=== PATIENT | female | born 1955 | race Caucasian/White ===

== ENCOUNTER 2020-03-10 08:21 | Outpatient (CLI) | payer BC, SELFPAY ==
--- NOTE | 2020-03-10 08:00 | USCV_ITS ---
Vanesa Paez Age: 64 Gender: F : 1955 Exam Date: 03/10/2020 08:27 Ordering Phys: Lokesh Montanez MD ([email or web address]) Technologist: Jaspal Dickinson Exam Location: [facility] [place] Indication: AI BP: 125 / 72 HR: 82 Rhythm: Sinus Technical Quality: Fair MEASUREMENTS (Male / Female) Normal Values 2D ECHO LV Diastolic Diameter PLAX 3.0 cm 4.2 - 5.9 / 3.9 - 5.3 cm LV Systolic Diameter PLAX 2.3 cm IVS Diastolic Thickness 1.0 cm 0.6 - 1.0 / 0.6 - 0.9 cm IVS Systolic Thickness 1.5 cm LVPW Diastolic Thickness 0.8 cm 0.6 - 1.0 / 0.6 - 0.9 cm LVPW Systolic Thickness 1.1 cm LVOT Diameter 2.0 cm LV Ejection Fraction 2D Teich 50.3 % LV Ejection Fraction MOD 2C 71.9 % LV Ejection Fraction 2C AL 71.5 % LA Diameter 3.8 cm LA Width 3.9 cm LA Height 5.0 cm RA Width 3.4 cm RA Height 4.4 cm Aorta at Sinotubular Diameter 3.0 cm M-MODE LV Diastolic Diameter MM 4.8 cm 4.2 - 5.9 / 3.9 - 5.3 cm LV Systolic Diameter MM 3.3 cm LV Ejection Fraction MM Teich 57.4 % IVS Diastolic Thickness MM 0.8 cm 0.6 - 1.0 / 0.6 - 0.9 cm IVS Systolic Thickness MM 1.1 cm LVPW Diastolic Thickness MM 1.0 cm 0.6 - 1.0 / 0.6 - 0.9 cm LVPW Systolic Thickness MM 1.4 cm RV Diastolic Diameter MM 1.2 cm Aortic Annulus Diameter 3.8 cm LA Ao Ratio MM 1.0 MV E Point Septal Separation 1.8 cm DOPPLER AV Peak Velocity 144.0 cm/s LVOT Peak Velocity 101.0 cm/s AV Area Cont Eq vti 2.6 cm squared AV Area Cont Eq pk 2.3 cm squared MV Area PHT 5.0 cm squared Mitral E to A Ratio 0.7 MV E' Velocity 8.0 cm/s Mitral E to MV E' Ratio 7.6 Mitral E to LV E' Lateral Ratio 7.4 Mitral E to LV E' Septal Ratio 7.9 TR Peak Velocity 276.0 cm/s TR Peak Gradient 30.5 mmHg TV Peak E Velocity 92.0 cm/s Right Atrial Pressure 3.0 mmHg Pulmonary Artery Systolic Pressu 33.5 mmHg FINDINGS Left Ventricle Normal left ventricular size and systolic function, EF 70 %. No regional wall motion abnormalities. Grade I/IV diastolic dysfunction (abnormal relaxation filling pattern), normal to mildly elevated filling pressures. Right Ventricle The right ventricle is normal in size and function. Right Atrium The right atrium is normal in size. Left Atrium Mildly increased left atrial size. Mitral Valve Thickened mitral valve. Moderate mitral annular calcification. Mild mitral valve regurgitation. Aortic Valve Thickened aortic valve. [id number] aortic valve regurgitation. Tricuspid Valve Trace tricuspid valve regurgitation. Pulmonic Valve Structurally normal pulmonic valve without significant stenosis. There is no pulmonic regurgitation. Pericardium Normal pericardium without effusion. Aorta Plaque seen in the ascending aorta. CONCLUSIONS Normal left ventricular size and systolic function, EF 70 %. No regional wall motion abnormalities. Grade I/IV diastolic dysfunction (abnormal relaxation filling pattern), normal to mildly elevated filling pressures. Mildly increased left atrial size. Thickened mitral valve. Moderate mitral annular calcification. Mild mitral valve regurgitation. Thickened aortic valve. [id number] aortic valve regurgitation. Trace tricuspid valve regurgitation. There is no pericardial effusion. There are no intracardiac masses. Plaque seen in the ascending aorta. Compared to study from 06/19/2018, there may not be a significant change Dr Maged Jones MD FACC (Electronically Signed) Final Date: 10 March 2020 18:24 S
== END 2020-03-10 08:22 | disposition home or self-care (01) ==
LOC: RAD 08:25
PROVIDERS: PCP Internal Medicine; Visit Provider Internal Medicine Cardiovascular Disease
DX: R06.02 Shortness of breath (principal); I08.3 Combined rheumatic disorders of mitral, aortic and tricuspid valves
CPT/HCPCS: 93306

== ENCOUNTER 2022-04-10 16:27 | Emergency (ER) | payer BC, SELFPAY ==
--- NOTE | 2022-04-10 16:34 | ED_ITS ---
Documented by User: Catarinonate Molina DO 04/10/22 18:03 HPI - Chest Pain General: Chief Complaint: Chest Pain Stated Complaint: CHEST PAIN Time Seen by Provider: 04/10/22 16:28 History of Present Illness: 66-year-old female presents with chest pain. Patient was brought in by EMS. She reports that she had gone out to hang up a couple she is in some close and she developed chest pain in the epigastric mid chest that radiated to her back. She took 3 baby aspirin's at home. She called ambulance who in route put an IV and gave her nitro. She reports the nitro gave her some minimal relief. She now complains mainly of pain in the epigastric region. She reports that may be because she had a big lunch she does report she got a little diaphoretic when she came in. She denies any shortness of breath, nausea, vomiting. Associated symptoms: Reports abdominal pain (Epigastric) and diaphoresis; Deny dyspnea, fever(s), nausea, palpitations or vomiting Review of Systems Const: Reports: diaphoresis; Denies: fever(s) or chills Eyes: Denies: change in vision or blurry vision ENMT: Denies: throat pain or ear or mastoid pain Card: Reports: chest pain; Denies: palpitations, irregular heart rhythm or edema Resp: Denies: dyspnea or productive cough GI: Reports: abdominal pain (Epigastric); Denies: nausea or vomiting Musc: Reports: back pain; Denies: neck pain or extremity pain Skin/Breast: Denies: rash Neuro: Denies: headache(s) or numbness in extremities PFS ED PFSH: Medical History History of aortic regurgitation History of hypertension History of tachycardia Social History Smoking and tobacco status: never smoked Physical Exam Const: COMMON NORMALS: no acute distress, patient oriented x3, no limitations and alert HENMT: COMMON NORMALS: normocephalic HEAD & SCALP: normal to inspection and normocephalic Eye: COMMON NORMALS: Equal, round and reactive pupils present and conjunctivae normal CONJUNCTIVA: Yes conjunctivae normal PUPIL: Yes Equal, round and reactive pupils present Chest: CHEST: Yes Symmetrical chest wall rise and No tenderness Resp: COMMON NORMALS: normal respiratory effort, No retractions, No use of accessory muscles and clear to auscultation bilaterally AUSCULTATION: clear to auscultation bilaterally Cardio: COMMON NORMALS: regular rate and regular rhythm RATE: regular rate RHYTHM: regular rhythm GI: COMMON NORMALS: Soft to palpation INSPECTION: Yes normal to inspection PALPATION: Yes Soft to palpation and Yes Tenderness to palpation present (GI) Details: other (Mild epigastric) : COMMON NORMALS: Yes no CVA tenderness BLADDER/KIDNEY EXAM: Yes no CVA tenderness Back/Pelvis: COMMON NORMALS: no CVA tenderness Extremity: COMMON NORMALS: normal to inspection and full ROM Neuro: COMMON NORMALS: patient oriented x3, CN's II-XII intact bilaterally, moves all extremities, no focal motor deficits and no sensory deficits noted SENSORIUM/ORIENTATION: Yes alert Psych: COMMON NORMALS: mental status grossly normal, Normal thought process present and cooperative THOUGHT PROCESS: Normal thought process present Course Vital Signs: Vital signs: Vital Signs Temperature 97.6 F 04/10/22 16:35 Pulse Rate 88 04/10/22 16:47 Respiratory Rate 15 04/10/22 16:47 Blood Pressure 171/82 04/10/22 16:47 Pulse Oximetry 96 04/10/22 16:47 MDM - Chest Pain Medical Decision Making pt signed out to Dr Montez Lab Data : 04/10/22 16:44 04/10/22 17:17 Radiology Impressions Chest X-Ray 04/10/22 16:38 IMPRESSION: No acute findings. Laboratory Results WBC 8.2 10^3/uL (4.0-10.0) 04/10/22 16:44 RBC 4.30 10^6/uL (4.1-5.3) 04/10/22 16:44 Hgb 12.8 g/dL (11.5-15.3) 04/10/22 16:44 Hct 37.8 % (37.0-47.0) 04/10/22 16:44 MCV 87.9 fl (81-99) 04/10/22 16:44 MCH 29.8 pg (28.0-34.0) 04/10/22 16:44 MCHC 33.9 g/dL (30.0-36.0) 04/10/22 16:44 RDW 14.2 % (12.1-15.1) 04/10/22 16:44 Plt Count 296 10^3/cmm (130-400) 04/10/22 16:44 MPV 11.4 fL (7.4-10.4) H 04/10/22 16:44 Neut % (Auto) 50.4 % 04/10/22 16:44 Lymph % (Auto) 35.5 % 04/10/22 16:44 Stevens % (Auto) 8.5 % 04/10/22 16:44 Eos % (Auto) 4.8 % 04/10/22 16:44 Baso % (Auto) 0.7 % 04/10/22 16:44 Neut # (Auto) 4.12 10^3/uL (1.8-7.7) 04/10/22 16:44 Lymph # (Auto) 2.9 10^3/uL (0.8-4.8) 04/10/22 16:44 Stevens # (Auto) 0.7 10^3/uL (0.2-0.9) 04/10/22 16:44 Eos # (Auto) 0.4 10^3/uL (0.0-0.8) 04/10/22 16:44 Baso # (Auto) 0.1 10^3/uL (0.0-0.1) 04/10/22 16:44 Nucleated RBC % (auto) 0 % 04/10/22 16:44 Nucleated RBCs # 0.0 /100WBC 04/10/22 16:44 Sodium 133 mmol/L (136-145) L 04/10/22 17:17 Potassium 3.6 mmol/L (3.5-5.1) 04/10/22 17:17 Chloride 100 mmol/L (98-107) 04/10/22 17:17 Carbon Dioxide 21 mmol/L (22-29) L 04/10/22 17:17 Anion Gap 15.6 (5-19) 04/10/22 17:17 BUN 14 mg/dL (8-23) 04/10/22 17:17 Creatinine 1.1 mg/dL (0.5-0.9) H 04/10/22 17:17 GFR Calculation 50.0 mL/min (90-130) L 04/10/22 17:17 Glucose 120 mg/dL (65-115) H 04/10/22 17:17 Calculated Osmolality 278 mOsm/kg (285-295) L 04/10/22 17:17 Calcium 9.6 mg/dL (8.5-10.5) 04/10/22 17:17 Total Bilirubin 0.3 mg/dL (0.15-1.2) 04/10/22 17:17 AST 105 U/L (0-32) H 04/10/22 17:17 ALT 44 U/L (0-33) H 04/10/22 17:17 Alkaline Phosphatase 150 IU/L (35-105) H 04/10/22 17:17 Troponin T Baseline 11 ng/L (0-10) H 04/10/22 17:17 Troponin T 120 Minute 10.04 ng/L (0-10) H 04/10/22 18:52 Delta Troponin T -0.96 ABS# (0-10) L 04/10/22 18:52 NT-Pro-B Natriuret Pep 134 pg/mL (0-125) H 04/10/22 17:17 Total Protein 6.2 g/dL (6.6-8.7) L 04/10/22 17:17 Albumin 3.7 g/dL (3.5-5.2) 04/10/22 17:17 Globulin 2.5 g/dL (1.3-4.6) 04/10/22 17:17 Lipase 29 U/L (13-60) 04/10/22 17:17 EKG Data EKG 1: I personally reviewed and interpreted this EKG as follows: EKG interpretation date: 04/10/22 EKG interpretation time: 16:57 Interpretation: Heart rate 85, normal sinus rhythm, NH 202, QTc 428, no acute ST changes Discharge Plan Discharge Patient Disposition: Home Clinical Impression: Chest pain Condition: Stable Prescriptions: No Action levothyroxine 88 mcg tablet 88 mcg PO DAILY 0RF bupropion HCl 300 mg tablet extended release 24 hr 300 mg PO DAILY 0RF Zyrtec 10 mg capsule 10 mg PO DAILY PRN0RF levocetirizine [Xyzal] 5 mg tablet 5 mg PO DAILY PRN0RF fluoxetine [Prozac] 20 mg capsule 20 mg PO DAILY 0RF cholecalciferol (vitamin D3) 50 mcg (2,000 unit) capsule 50 mcg PO DAILY 0RF zinc 50 mg tablet 50 mg PO DAILY 0RF amlodipine 5 mg tablet 5 mg PO DAILY Qty: 90 3RF losartan 25 mg tablet 75 mg PO DIRECTED Qty: 90 0RF Rx Instructions: 50mg (2 tabs) in AM and 25mg (1 tab) in PM; Must have appt for further refills Discharge Orders: Discharge ED (Routine); Ordered 04/10/22 Ordered By: Simón Montez Referrals: Jareth Foster DO [Primary Care Provider] - 1-3 days Discharge Diet: Advance as tolerated Discharge Activity: Resume usual activity Patient Instructions: Chest Pain (ED) Coding Level of Care Code ED Cardiology Clinical Nurse Specialist for Chg Fwd Exam Comprehensive Documented by User: Simón Montez MD 04/10/22 19:41 HPI - Chest Pain General: Chief Complaint: Chest Pain Stated Complaint: CHEST PAIN Time Seen by Provider: 04/10/22 16:28 [facility] PFSH: Medical History History of aortic regurgitation History of hypertension History of tachycardia Social History Smoking and tobacco status: never smoked Course Vital Signs: Vital signs: Vital Signs Temperature 97.6 F 04/10/22 16:35 Pulse Rate 88 04/10/22 16:47 Respiratory Rate 15 04/10/22 16:47 Blood Pressure 171/82 04/10/22 16:47 Pulse Oximetry 96 04/10/22 16:47 MDM - Chest Pain Medical Decision Making pt signed out to Dr Montez Patient presents here with chest pain atypical in nature after eating likely gastritis she is pain-free here her troponins here are negative abdominal exam is benign she is stable for discharge she is to follow-up with PCP and return if worsening. Lab Data : 04/10/22 16:44 04/10/22 17:17 Radiology Impressions Chest X-Ray 04/10/22 16:38 IMPRESSION: No acute findings. Laboratory Results WBC 8.2 10^3/uL (4.0-10.0) 04/10/22 16:44 RBC 4.30 10^6/uL (4.1-5.3) 04/10/22 16:44 Hgb 12.8 g/dL (11.5-15.3) 04/10/22 16:44 Hct 37.8 % (37.0-47.0) 04/10/22 16:44 MCV 87.9 fl (81-99) 04/10/22 16:44 MCH 29.8 pg (28.0-34.0) 04/10/22 16:44 MCHC 33.9 g/dL (30.0-36.0) 04/10/22 16:44 RDW 14.2 % (12.1-15.1) 04/10/22 16:44 Plt Count 296 10^3/cmm (130-400) 04/10/22 16:44 MPV 11.4 fL (7.4-10.4) H 04/10/22 16:44 Neut % (Auto) 50.4 % 04/10/22 16:44 Lymph % (Auto) 35.5 % 04/10/22 16:44 Stevens % (Auto) 8.5 % 04/10/22 16:44 Eos % (Auto) 4.8 % 04/10/22 16:44 Baso % (Auto) 0.7 % 04/10/22 16:44 Neut # (Auto) 4.12 10^3/uL (1.8-7.7) 04/10/22 16:44 Lymph # (Auto) 2.9 10^3/uL (0.8-4.8) 04/10/22 16:44 Stevens # (Auto) 0.7 10^3/uL (0.2-0.9) 04/10/22 16:44 Eos # (Auto) 0.4 10^3/uL (0.0-0.8) 04/10/22 16:44 Baso # (Auto) 0.1 10^3/uL (0.0-0.1) 04/10/22 16:44 Nucleated RBC % (auto) 0 % 04/10/22 16:44 Nucleated RBCs # 0.0 /100WBC 04/10/22 16:44 Sodium 133 mmol/L (136-145) L 04/10/22 17:17 Potassium 3.6 mmol/L (3.5-5.1) 04/10/22 17:17 Chloride 100 mmol/L (98-107) 04/10/22 17:17 Carbon Dioxide 21 mmol/L (22-29) L 04/10/22 17:17 Anion Gap 15.6 (5-19) 04/10/22 17:17 BUN 14 mg/dL (8-23) 04/10/22 17:17 Creatinine 1.1 mg/dL (0.5-0.9) H 04/10/22 17:17 GFR Calculation 50.0 mL/min (90-130) L 04/10/22 17:17 Glucose 120 mg/dL (65-115) H 04/10/22 17:17 Calculated Osmolality 278 mOsm/kg (285-295) L 04/10/22 17:17 Calcium 9.6 mg/dL (8.5-10.5) 04/10/22 17:17 Total Bilirubin 0.3 mg/dL (0.15-1.2) 04/10/22 17:17 AST 105 U/L (0-32) H 04/10/22 17:17 ALT 44 U/L (0-33) H 04/10/22 17:17 Alkaline Phosphatase 150 IU/L (35-105) H 04/10/22 17:17 Troponin T Baseline 11 ng/L (0-10) H 04/10/22 17:17 Troponin T 120 Minute 10.04 ng/L (0-10) H 04/10/22 18:52 Delta Troponin T -0.96 ABS# (0-10) L 04/10/22 18:52 NT-Pro-B Natriuret Pep 134 pg/mL (0-125) H 04/10/22 17:17 Total Protein 6.2 g/dL (6.6-8.7) L 04/10/22 17:17 Albumin 3.7 g/dL (3.5-5.2) 04/10/22 17:17 Globulin 2.5 g/dL (1.3-4.6) 04/10/22 17:17 Lipase 29 U/L (13-60) 04/10/22 17:17 EKG Data EKG 2: I personally reviewed and interpreted this EKG as follows: EKG interpretation date: 04/10/22 EKG interpretation time: 18:44 Interpretation: nsr hr [address] or t wave abnormalities qrs 103 qtc 404 Discharge Plan Discharge Patient Disposition: Home Clinical Impression: Chest pain Condition: Stable Prescriptions: No Action levothyroxine 88 mcg tablet 88 mcg PO DAILY 0RF bupropion HCl 300 mg tablet extended release 24 hr 300 mg PO DAILY 0RF Zyrtec 10 mg capsule 10 mg PO DAILY PRN0RF levocetirizine [Xyzal] 5 mg tablet 5 mg PO DAILY PRN0RF fluoxetine [Prozac] 20 mg capsule 20 mg PO DAILY 0RF cholecalciferol (vitamin D3) 50 mcg (2,000 unit) capsule 50 mcg PO DAILY 0RF zinc 50 mg tablet 50 mg PO DAILY 0RF amlodipine 5 mg tablet 5 mg PO DAILY Qty: 90 3RF losartan 25 mg tablet 75 mg PO DIRECTED Qty: 90 0RF Rx Instructions: 50mg (2 tabs) in AM and 25mg (1 tab) in PM; Must have appt for further refill s Discharge Orders: Discharge ED (Routine); Ordered 04/10/22 Ordered By: Simón Montez Referrals: Jareth Foster DO [Primary Care Provider] - 1-3 days Discharge Diet: Advance as tolerated Discharge Activity: Resume usual activity Patient Instructions: Chest Pain (ED) Coding Level of Care Code ED Cardiology Clinical Nurse Specialist for Chg Fwd Exam Comprehensive
[2022-04-10 16:35] VITALS: BP 148/78; PULSE 88; RESP 16; TEMP 36.4; O2SAT 97; BMI 35.6
--- NOTE | 2022-04-10 16:38 | ECG_ITS ---
[facility] Test Date: 2022-04-10 Pat Name: Vanesa Paez Department: Room: Gender: Female [place]: : 1955 Requested By: Catarino Molina Order Number: [id number] Lala MD: Maged Jones M.D. Measurements Intervals [place] Rate: 85 P: 49 HI: 202 QRS: -23 QRSD: 106 T: 23 QT: 385 QTc: 460 Interpretive Statements SINUS RHYTHM BORDERLINE LEFT AXIS DEVIATION [QRS AXIS < -20] VOLTAGE CRITERIA FOR LVH [MEETS CRITERIA IN ONE OF: R(aVL), S(V1), R(V5), R(V5/V6)+S(V1)] Compared to ECG 04/08/2016 03:29:34 No significant changes Electronically Signed On 04-10-2022 20:17:49 CDT by Maged Jones M.D. [id number]
--- NOTE | 2022-04-10 16:38 | XRR_ITS ---
PROCEDURE INFORMATION: Exam: XR Chest Exam date and time: 04/10/2022 4:56 PM Age: 66 years old Clinical indication: Pain; Other: Epigastric; Prior surgery; Surgery type: Breast; Additional info: Cp TECHNIQUE: Imaging protocol: Radiologic exam of the chest. Views: 1 view. COMPARISON: CR Chest 1 [place] [id number] 04/08/2016 7:46 AM FINDINGS: Lungs: Unremarkable. No consolidation. Pleural spaces: Unremarkable. No pleural effusion. No pneumothorax. Heart/Mediastinum: Unremarkable. No cardiomegaly. Bones/joints: Mild levoscoliosis. XR/XR chest 1V portable [id number] IMPRESSION: No acute findings.
[2022-04-10 16:47] VITALS: BP 171/82; PULSE 88; RESP 15; O2SAT 96
[2022-04-10] MEDS: famotidine 20 mg/2 mL INJ IVP (16:52)
[2022-04-10] MEDS: sodium chloride 0.9% 1,000 ML 999 ML IV (16:53)
[2022-04-10 16:58] LABS: Basophils # 0.1 10^3/uL (0.0-0.1); Basophils % 0.7 %; Eosinophils # 0.4 10^3/uL (0.0-0.8); Eosinophils % 4.8 %; Hematocrit 37.8 % (37.0-47.0); Hemoglobin 12.8 g/dL (11.5-15.3); Lymphocytes # 2.9 10^3/uL (0.8-4.8); Lymphocytes % 35.5 %; Mean Corpuscular HGB Conc 33.9 g/dL (30.0-36.0); Mean Corpuscular Hemoglobin 29.8 pg (28.0-34.0); Mean Corpuscular Volume 87.9 fl (81-99); Mean Platelet Volume 11.4 fL (7.4-10.4); Monocytes # 0.7 10^3/uL (0.2-0.9); Monocytes % 8.5 %; Neutrophils # 4.12 10^3/uL (1.8-7.7); Neutrophils % 50.4 %; Nucleated Red Blood Cells % 0 %; Platelet Count 296 10^3/cmm (130-400); Red Cell Distribution Width 14.2 % (12.1-15.1); White Blood Count 8.2 10^3/uL (4.0-10.0)
[2022-04-10 18:03] LABS: Troponin(5th) Baseline 11 ng/L (0-10)
[2022-04-10 18:13] LABS: Alanine Aminotransferase 44 U/L (0-33); Albumin Level 3.7 g/dL (3.5-5.2); Alkaline Phosphatase 150 IU/L (35-105); Blood Urea Nitrogen 14 mg/dL (8-23); Calcium 9.6 mg/dL (8.5-10.5); Carbon Dioxide 21 mmol/L (22-29); Chloride 100 mmol/L (98-107); Globulin 2.5 g/dL (1.3-4.6); Glucose 120 mg/dL (65-115); Lipase 29 U/L (13-60); NT Pro B Type Natriuretic Pept 134 pg/mL (0-125); Osmolality Calculated 278 mOsm/kg (285-295); Sodium 133 mmol/L (136-145); Total Bilirubin 0.3 mg/dL (0.15-1.2); Total Protein 6.2 g/dL (6.6-8.7)
[2022-04-10 18:30] LABS: Anion Gap 15.6 (5-19); Aspartate Amino Transferase 105 U/L (0-32); Potassium 3.6 mmol/L (3.5-5.1)
--- NOTE | 2022-04-10 18:38 | ECG_ITS ---
[facility] Test Date: 2022-04-10 Pat Name: Vanesa Paez Department: Room: Gender: Female Insurance Representative: : 1955 Requested By: Catarino Molina Order Number: [id number] Lala MD: Maged Jones M.D. Measurements Intervals [place] Rate: 85 P: 50 TN: 210 QRS: -24 QRSD: 103 T: 42 QT: 361 QTc: 432 Interpretive Statements SINUS RHYTHM WITH FIRST DEGREE AV BLOCK BORDERLINE LEFT AXIS DEVIATION [QRS AXIS < -20] VOLTAGE CRITERIA FOR LVH [MEETS CRITERIA IN ONE OF: R(aVL), S(V1), R(V5), R(V5/V6)+S(V1)] Compared to ECG 04/10/2022 16:44:13 First degree AV block now present Electronically Signed On 04-10-2022 20:21:39 CDT by Maged Jones M.D. [id number]
[2022-04-10 19:33] LABS: Troponin 5 2HR 10.04 ng/L (0-10)
[2022-04-10 19:34] LABS: Troponin 5 2HR Delta -0.96 ABS# (0-10)
[2022-04-10 19:59] VITALS: BP 132/76; PULSE 67; RESP 14; O2SAT 99
== END 2022-04-10 20:01 | disposition home or self-care (01) ==
PROVIDERS: Student in an Organized Health Care Education/Training Program; Emergency Provider Emergency Medicine; PCP Internal Medicine
DX: R07.9 Chest pain, unspecified (principal); I10 Essential (primary) hypertension
CPT/HCPCS: 71045; 80053; 83690; 83880; 84484; 85025; 93005; 96374; 99285; J3490; J7030

== ENCOUNTER → 2023-10-06 12:50 | Outpatient (BNVA) | payer MEDICARE, OTHER, SELFPAY | PROVIDERS: PCP Internal Medicine; Visit Provider Nurse Practitioner Family | DX: D48.5 Neoplasm of uncertain behavior of skin (principal); L57.0 Actinic keratosis; L57.8 Other skin changes due to chronic exposure to nonionizing radiation; D22.4 Melanocytic nevi of scalp and neck; L81.4 Other melanin hyperpigmentation; M67.431 Ganglion, right wrist; L90.5 Scar conditions and fibrosis of skin | CPT/HCPCS: 17000; 99203 ==

== ENCOUNTER → 2024-10-08 10:32 | Outpatient (BNVA) | payer MEDICARE, OTHER, SELFPAY | PROVIDERS: PCP Internal Medicine; Visit Provider Nurse Practitioner Family | DX: H01.139 Eczematous dermatitis of unspecified eye, unspecified eyelid (principal); I99.8 Other disorder of circulatory system; L57.8 Other skin changes due to chronic exposure to nonionizing radiation; D22.4 Melanocytic nevi of scalp and neck; L81.4 Other melanin hyperpigmentation | CPT/HCPCS: 11104; 99214 ==

== ENCOUNTER → 2024-10-18 09:23 | Outpatient (BNVA) | payer MEDICARE, OTHER, SELFPAY | PROVIDERS: PCP Family Medicine; Visit Provider Nurse Practitioner Family | DX: L82.0 Inflamed seborrheic keratosis (principal) | CPT/HCPCS: 99213 ==

== ENCOUNTER 2024-10-22 15:00 | Outpatient (CLI) | payer MEDICARE, OTHER, SELFPAY ==
--- NOTE | 2024-10-22 15:30 | XR_ITS ---
WS: [id number] DEXA (DUAL ENERGY X-RAY ABSORPTIOMETRY) Bone mineral density was performed using a Qminder machine. HISTORY: Postmenopausal COMPARISON: None available. Lumbar spine BMD (L1-L4): 1.005 g/cm2 T score: -1.5 Z score: -0.8 Total hip BMD: Left: 0.860 g/cm2. T score: -1.2 Z score: -0.5 Right: 0.823 g/cm2. T score: -1.5 Z score: -0.8 10 year probability of a major osteoporotic fracture is 17.7%. XR/XR DEXA axial skeleton* [id number] IMPRESSION: OSTEOPENIA based upon the WHO classification for females.
== END 2024-10-22 15:01 | disposition home or self-care (01) ==
PROVIDERS: PCP Family Medicine; Visit Provider Family Medicine
DX: Z78.0 Asymptomatic menopausal state (principal); M85.80 Other specified disorders of bone density and structure, unspecified site
CPT/HCPCS: 77080

== ENCOUNTER → 2025-04-04 08:50 | Outpatient (BNVA) | payer MEDICARE, OTHER, SELFPAY | PROVIDERS: PCP Family Medicine; Visit Provider Family Medicine | DX: I10 Essential (primary) hypertension (principal); E55.9 Vitamin D deficiency, unspecified; E03.8 Other specified hypothyroidism; Z11.59 Encounter for screening for other viral diseases; R26.89 Other abnormalities of gait and mobility | CPT/HCPCS: 80053; 80061; 82306; 82607; 84439; 84443; 85025; 86803 ==

== ENCOUNTER 2025-05-30 13:06 | Outpatient (CLI) | payer MEDICARE, OTHER, SELFPAY | END 2025-05-30 13:07 | disposition home or self-care (01) | LOC: SLEEP 13:11 | PROVIDERS: PCP Family Medicine; Visit Provider Internal Medicine Pulmonary Disease | DX: G47.33 Obstructive sleep apnea (adult) (pediatric) (principal) | CPT/HCPCS: G0399 ==

== ENCOUNTER 2025-06-19 09:38 | Outpatient (RCR) | payer MEDICARE, OTHER, SELFPAY | END 2025-07-19 23:59 | disposition home or self-care (01) | LOC: SPT 09:38 | PROVIDERS: PCP Family Medicine; Visit Provider Family Medicine | DX: R26.89 Other abnormalities of gait and mobility (principal) | CPT/HCPCS: 97110; 97161 ==

== ENCOUNTER 2025-07-20 05:00 | Outpatient (RCR) | payer MEDICARE, BC, SELFPAY | END 2025-08-18 23:59 | disposition home or self-care (01) | LOC: SPT 05:00 | PROVIDERS: PCP Family Medicine; Visit Provider Family Medicine | DX: R26.89 Other abnormalities of gait and mobility (principal) | CPT/HCPCS: 97110 ==

== ENCOUNTER → 2025-08-16 10:54 | Outpatient (BNVA) | payer MEDICARE, BC, SELFPAY | PROVIDERS: PCP Family Medicine; Visit Provider Emergency Medicine | DX: R39.9 Unspecified symptoms and signs involving the genitourinary system (principal) | CPT/HCPCS: 81000; 87086 ==